=== PATIENT | female | born 1970 | race Caucasian/White ===

== ENCOUNTER → 2016-12-25 | Outpatient (CLI) | payer BC ==
[2016-12-25 18:53] LABS: CONTROL LINE HCG INT CTR LINE PRESENT
[2016-12-25 18:56] LABS: BASO % 0.6 % (0.0-1.0); EOS % 0.7 % (0.0-3.0); LARGE UNSTAINED CELL # 0.1 K/mm3 (0.0-0.4); LARGE UNSTAINED CELL % 1.8 % (0.0-4.0); LYMPH # 1.6 K/mm3 (1.5-4.5); LYMPH % 36.7 % (24.0-44.0); MEAN CORPUSCULAR HEMOGLOBIN 32.4 pg (27.0-33.0); MEAN CORPUSCULAR HGB CONC 33.8 g/dl (32.0-36.5); MEAN CORPUSCULAR VOLUME 95.8 fl (80.0-96.0); MONO # 0.2 K/mm3 (0.0-0.8); MONO % 4.5 % (0.0-5.0); NEUTROPHILS # 2.4 K/mm3 (1.8-7.7); NEUTROPHILS % 55.6 % (36.0-66.0); PLATELET COUNT, AUTOMATED 210 k/mm3 (150-450); RED CELL DISTRIBUTION WIDTH 13.3 % (11.5-14.5); WHITE BLOOD COUNT 4.4 K/mm3 (4.0-10.0)
[2016-12-25 20:29] LABS: ERYTHROCYTE SEDIMENTATION RATE 19 mm/hr (0-20)
--- NOTE | 2016-12-25 22:05 | REP ---
Clinical: Arrhythmia . Comparison: None . Technique: PA and lateral. Findings: The mediastinum and cardiac silhouette are normal. The lung young are clear and without acute consolidation, effusion, or pneumothorax. The skeletal structures are intact and normal. Impression: 1. No acute cardiopulmonary process. Signed by Duke Laureano MD 12/25/2016 09:56 P
== END ==
LOC: M WUC 14:18
PROVIDERS: ATTEND Physician Assistant Medical
DX: L52 Erythema nodosum (principal)

== ENCOUNTER → 2017-02-12 | Outpatient (CLI) | payer BC ==
--- NOTE | 2017-02-12 16:05 | REPMRS ---
Patient History The patient states she had a clinical breast exam in 02/11 Family history of prostate cancer in father at age 50 or over and breast cancer in paternal aunt at age 50 or over. Digital Woman Screen Mammo: February 12, 2017 - Exam #: [id number] Bilateral CC and MLO view(s) were taken. Technologist: Zulema Moon, Technologist Prior study comparison: December 21, 2015, digital woman screen mammo performed at [facility] to [facility]. December 16, 2014, digital woman screen mammo performed at [facility] to [facility]. FINDINGS: There are scattered fibroglandular densities. There has been no change in the appearance of the mammogram from the prior studies. There is a mild amount of residual fibroglandular tissue which is fairly symmetric. There is no interval development of dominant mass, architectural distortion, or clustered microcalcification suggestive of malignancy. ASSESSMENT: BI-RADS/ACR category 1 mammogram. Negative. Recommendation Routine screening mammogram in 1 year (for women over age 40). This mammogram was interpreted with the aid of an FDA-approved computer-aided dectection system. Electronically Signed By: Denzel Long MD 02/12/17 0243
== END ==
LOC: M WHC 14:43
PROVIDERS: ATTEND Nurse Practitioner Women's Health
DX: Z12.31 Encounter for screening mammogram for malignant neoplasm of breast (principal)

== ENCOUNTER → 2017-02-12 | Outpatient (REF) | payer BC | LOC: M SFHCWAGY 15:11 | PROVIDERS: ATTEND Nurse Practitioner Women's Health | DX: Z12.4 Encounter for screening for malignant neoplasm of cervix (principal); Z12.31 Encounter for screening mammogram for malignant neoplasm of breast ==

== ENCOUNTER → 2017-05-01 | Outpatient (REF) | payer BC ==
[2017-05-01 12:24] LABS: BASO % 0.4 % (0.0-1.0); EOS # 0.1 10^3/uL (0.0-0.50); HEMATOCRIT 36.1 % (36.0-47.0); HEMOGLOBIN 12.3 g/dl (12.0-16.0); IMMATURE GRANULOCYTE % 0.4 % (0-0); LYMPH # 2.3 10^3/uL (1.5-4.5); MEAN CORPUSCULAR HEMOGLOBIN 32.8 pg (27.0-33.0); MEAN CORPUSCULAR HGB CONC 34.1 g/dl (32.0-36.5); MEAN CORPUSCULAR VOLUME 96.3 fl (80.0-96.0); MONO # 0.4 10^3/uL (0.0-0.8); NEUTROPHILS # 5.4 10^3/uL (1.8-7.7); NEUTROPHILS % 65.2 % (36.0-66.0); PLATELET COUNT, AUTOMATED 205 10^3/uL (150-450); RED BLOOD COUNT 3.75 10^6/uL (4.00-5.40); RED CELL DISTRIBUTION WIDTH 13.1 % (11.5-14.5); WHITE BLOOD COUNT 8.2 10^3/uL (4.0-10.0)
[2017-05-01 12:45] LABS: ANION GAP 4 MEQ/L (8-16); BLOOD UREA NITROGEN 12 MG/DL (7-18); CALCIUM LEVEL 8.8 MG/DL (8.5-10.1); CARBON DIOXIDE LEVEL 32 MEQ/L (21-32); CHLORIDE LEVEL 107 MEQ/L (98-107); CREATININE FOR GFR 0.65 MG/DL (0.55-1.02); GLOMERULAR FILTRATION RATE > 60.0 (>58); GLUCOSE, FASTING 82 MG/DL (70-105); POTASSIUM SERUM 4.2 MEQ/L (3.5-5.1); SODIUM LEVEL 143 MEQ/L (136-145)
== END ==
LOC: M SFHCPLAZ 10:05
DX: R05 Cough (principal)
CPT/HCPCS: 80048

== ENCOUNTER → 2017-05-01 | Outpatient (CLI) | payer BC | LOC: M SMT 10:47 | DX: R05 Cough (principal) | CPT/HCPCS: 71046 ==

== ENCOUNTER → 2017-10-15 | Outpatient (REF) | payer BC ==
[2017-10-15 16:00] LABS: BASO % 0.5 % (0.0-1.0); EOS % 0.7 % (0.0-3.0); HEMATOCRIT 37.9 % (36.0-47.0); HEMOGLOBIN 12.7 g/dl (12.0-15.5); IMMATURE GRANULOCYTE % 0.3 % (0-3.0); LYMPH # 2.2 10^3/uL (1.5-4.5); LYMPH % 37.6 % (24.0-44.0); MEAN CORPUSCULAR HEMOGLOBIN 32.5 pg (27.0-33.0); MEAN CORPUSCULAR HGB CONC 33.5 g/dl (32.0-36.5); MEAN CORPUSCULAR VOLUME 96.9 fl (80.0-96.0); MONO # 0.5 10^3/uL (0.0-0.8); MONO % 7.8 % (0.0-5.0); NEUTROPHILS # 3.1 10^3/uL (1.8-7.7); NEUTROPHILS % 53.1 % (36.0-66.0); PLATELET COUNT, AUTOMATED 204 10^3/uL (150-450); RED BLOOD COUNT 3.91 10^6/uL (4.00-5.40); RED CELL DISTRIBUTION WIDTH 13.4 % (11.5-14.5); WHITE BLOOD COUNT 5.8 10^3/uL (4.0-10.0)
[2017-10-15 16:20] LABS: C REACTIVE PROTEIN QUANTITATIV 0.38 MG/DL (0.00-0.30)
[2017-10-15 16:33] LABS: ERYTHROCYTE SEDIMENTATION RATE 20 mm/hr (0-20)
[2017-10-18 00:12] LABS: CYCLIC CITRULLINATED PEPTIDE 4 units (0-19)
[2017-10-18 00:12] LABS: ANA (HEP2) Negative (.)
== END ==
LOC: M SFHCPLAZ 12:24
DX: M25.561 Pain in right knee (principal)
CPT/HCPCS: 86140

== ENCOUNTER → 2018-03-03 | Outpatient (CLI) | payer BC | LOC: M WHC 13:22 | DX: Z12.31 Encounter for screening mammogram for malignant neoplasm of breast (principal) | CPT/HCPCS: 77067 ==

== ENCOUNTER → 2019-01-27 | Outpatient (REF) | payer BC ==
[~2019-01-27] MED LIST: KETO10TAB PO; NITR100C2; PYRI1TAB5 PO
== END ==
LOC: M LAB REF 16:27
PROVIDERS: ATTEND Physician Assistant
DX: N39.0 Urinary tract infection, site not specified (principal)

== ENCOUNTER 2019-01-28 20:20 | Emergency (ER) | payer BC ==
[~2019-01-28] VITALS: Ht 177.8 cm; Wt 125.0 kg
[2019-01-28] MEDS ORDERED: NITR100C2 (20:27)
[2019-01-28] MEDS ORDERED: NS 1,000 ML IV ONE (21:00)
[2019-01-28] MEDS ORDERED: KETOROLAC 30 MG/ML VIAL (J1885) IV ONE (21:00)
[2019-01-28 21:16] LABS: BASO % 0.3 % (0.0-1.0); EOS % 0.2 % (0.0-3.0); HEMATOCRIT 37.5 % (36.0-47.0); HEMOGLOBIN 12.5 g/dl (12.0-15.5); LYMPH # 1.4 10^3/uL (1.5-5.0); LYMPH % 15.6 % (24.0-44.0); MEAN CORPUSCULAR HEMOGLOBIN 31.6 pg (27.0-33.0); MEAN CORPUSCULAR HGB CONC 33.3 g/dl (32.0-36.5); MEAN CORPUSCULAR VOLUME 94.9 fl (80.0-96.0); MONO # 0.5 10^3/uL (0.0-0.8); MONO % 5.2 % (0.0-5.0); NEUTROPHILS # 6.8 10^3/uL (1.5-8.5); NEUTROPHILS % 78.4 % (36.0-66.0); PLATELET COUNT, AUTOMATED 213 10^3/uL (150-450); RED BLOOD COUNT 3.95 10^6/uL (4.00-5.40); WHITE BLOOD COUNT 8.7 10^3/uL (4.0-10.0)
[2019-01-28] MEDS ORDERED: ISOVUE-370 76% 100ML VIAL (Q9967) As Ordered ONE (21:20)
[2019-01-28 21:34] LABS: ALBUMIN 3.8 GM/DL (3.2-5.2); BILIRUBIN,DIRECT 0.3 MG/DL (0.0-0.2); TOTAL PROTEIN 7.3 GM/DL (6.4-8.2)
--- NOTE | 2019-01-28 22:30 | REPVR ---
PROCEDURE INFORMATION: Exam: CT Abdomen and pelvis with contrast Exam date and time: 01/28/2019 9:30 PM Clinical history: 48 years old, female; Abdominal pain; Localized; Left upper quadrant (luq); Additional info: Luq pain TECHNIQUE: Imaging protocol: Computed tomography of the abdomen and pelvis with intravenous contrast. Radiation optimization: All CT scans at this facility use at least one of these dose optimization techniques: automated exposure control; mA and/or kV adjustment per patient size (includes targeted exams where dose is matched to clinical indication); or iterative reconstruction. Contrast material: ISOVUE 370; Contrast volume: 100 ml; Contrast route: IV; COMPARISON: No relevant prior studies available. FINDINGS: Liver: There is a diffuse decrease in hepatic parenchymal density, consistent with fatty infiltration. Gallbladder and bile ducts: There has been a cholecystectomy. Pancreas: Normal. No ductal dilation. Spleen: Normal. No splenomegaly. Adrenals: Normal. No mass. Kidneys and ureters: Mild hydroureteronephrosis on the right without evidence of obstructing calculus or mass. Stomach and bowel: Unremarkable. No obstruction. No mucosal thickening. Appendix: No evidence of appendicitis. Intraperitoneal space: Unremarkable. No free air. No significant fluid collection. Vasculature: Unremarkable. No abdominal aortic aneurysm. Lymph nodes: Unremarkable. No enlarged lymph nodes. Bladder: Unremarkable as visualized. Reproductive: Unremarkable as visualized. Bones/joints: The spine demonstrates mild degenerative changes. Mild central spinal stenosis L4-L5. Soft tissues: Unremarkable. IMPRESSION: 1. There is a diffuse decrease in hepatic parenchymal density, consistent with fatty infiltration. 2. There has been a cholecystectomy. 3. Mild hydroureteronephrosis on the right without evidence of obstructing calculus or mass. 4. No acute findings. Electronically signed by: Jin Joel On 01/28/2019 22:30:15 PM
[2019-01-28] MEDS ORDERED: cefTRIAXone SOD 1 GM in D5W MINI-BAG PLUS 50 ML IV ONE (22:45)
[2019-01-28] MEDS ORDERED: PYRI1TAB5 PO (23:21)
[2019-01-28] MEDS ORDERED: KETO10TAB PO (23:22)
[2019-01-28 23:37] VITALS: BP 130/84
== END 2019-01-29 00:01 | disposition home or self-care (01) ==
LOC: M ED 20:20
DX: N39.0 Urinary tract infection, site not specified (principal); Z79.899 Other long term (current) drug therapy; Z88.2 Allergy status to sulfonamides
CPT/HCPCS: 74177; 80047; 80076; 81001; 83605; 83690; 85025; 87086; 96365; 96375; 99284; J0696; J1885; Q9967

== ENCOUNTER → 2019-03-09 | Outpatient (CLI) | payer BC ==
--- NOTE | 2019-03-09 12:31 | REPMRS ---
Patient History The patient states she had a clinical breast exam in 02/2019. Patient is postmenopausal. Family history of prostate cancer at age 50 or over in father, breast cancer at age 50 or over in paternal aunt. No Hormone Replacement Therapy Digital Woman Screen Mammo: March 09, 2019 - Exam #: [id number] Bilateral CC and MLO view(s) were taken. Technologist: Adelita Murry, Technologist Prior study comparison: March 03, 2018, bilateral digital woman screen mammo performed at [facility]. February 12, 2017, digital woman screen mammo performed at [facility]. December 21, 2015, digital woman screen mammo performed at [facility]. FINDINGS: The breast tissue is almost entirely fat. There has been no change in the appearance of the mammogram from the prior studies. There is no interval development of dominant mass, architectural distortion, or grouped microcalcification typical of malignancy. 3-D tomosynthesis shows no additional findings. Assessment: BI-RADS/ACR category 1 mammogram. Negative Mammogram. Recommendation Routine screening mammogram of both breasts in 1 year (for women over age 40). This patient's Lifetime Breast Cancer RIsk is estimated at 11.1 %. This mammogram was interpreted with the aid of an FDA-approved computer-aided dectection system. Electronically Signed By: Ryan Henderson MD 03/09/19 2129
== END ==
LOC: M WHC 09:50
PROVIDERS: ATTEND Nurse Practitioner Women's Health
DX: Z12.31 Encounter for screening mammogram for malignant neoplasm of breast (principal)

== ENCOUNTER → 2019-08-06 | Outpatient (CLI) | payer BC ==
--- NOTE | 2019-08-06 11:14 | REP ---
REASON: Back pain. COMPARISON: None. Minimal partial syndesmophyte formation is seen on the right at L3-4 and L4-5. There is mild posterior disc space narrowing at every level. Vertebral body height and alignment is within normal limits. Minimal anterior lipping is seen L2, L3, and L4. There is no spondylolysis or spondylolisthesis. The pedicles are intact bilaterally. IMPRESSION: Minimal chronic changes as described above. Electronically Signed by Eric Menard DO 08/06/2019 11:36 A
--- NOTE | 2019-08-06 11:15 | REP ---
REASON: Pain. PRIORS: None. FINDINGS: Three views of the sacroiliac joints show them to be non-fused. There is no lysis or sclerosis of either the sacral or iliac side of either SI joints. There is no evidence of whiskering. There is no prominent osteophytosis. IMPRESSION: SI joints within normal limits. Electronically Signed by Eric Menard DO 08/06/2019 11:37 A
--- NOTE | 2019-08-06 11:24 | REP ---
REASON: Bilateral ankle pain, atraumatic. COMPARISON: No priors. FINDINGS: No acute fracture or destructive osseous lesion. The mortise is intact. Note is made of retro and plantar calcaneal heel spurs bilaterally. Note is made of os navicularis on the left. Electronically Signed by Eric Menard DO 08/06/2019 11:37 A
[2019-08-06 13:10] LABS: HEMOGLOBIN A1c 5.3 %
[2019-08-06 13:23] LABS: ALBUMIN 3.5 GM/DL (3.2-5.2); ALT/SGPT 18 U/L (12-78); BILIRUBIN,TOTAL 0.9 MG/DL (0.2-1.0); BLOOD UREA NITROGEN 14 MG/DL (7-18); C REACTIVE PROTEIN QUANTITATIV 0.48 MG/DL (0.00-0.30); CALCIUM LEVEL 8.6 MG/DL (8.5-10.1); CARBON DIOXIDE LEVEL 29 MEQ/L (21-32); CHLORIDE LEVEL 108 MEQ/L (98-107); CHOLESTEROL LEVEL 139 MG/DL (<200); CHOLESTEROL RISK RATIO 2.527 (<5); CREATININE FOR GFR 0.72 MG/DL (0.55-1.30); FREE T4 0.96 NG/DL (0.76-1.46); GLOMERULAR FILTRATION RATE > 60.0 (>58); GLUCOSE, FASTING 80 MG/DL (70-100); HDL CHOLESTEROL 55 MG/DL (>40); LDL CHOLESTEROL 74 MG/DL (<100); NON-HDL-C 84 MG/DL; POTASSIUM SERUM 4.3 MEQ/L (3.5-5.1); SODIUM LEVEL 140 MEQ/L (136-145); TOTAL PROTEIN 6.9 GM/DL (6.4-8.2); TRIGLYCERIDES LEVEL 51 MG/DL (<150)
[2019-08-06 13:24] LABS: TOTAL 25(OH) VITAMIN D 24.3 NG/ML (30.0-100.0)
[2019-08-06 13:25] LABS: PTH INTACT 100.9 PG/ML (18.5-88.0)
== END ==
LOC: M WUC 10:10
PROVIDERS: ATTEND Family Medicine
DX: E66.09 Other obesity due to excess calories (principal); M77.31 Calcaneal spur, right foot; M77.32 Calcaneal spur, left foot; M25.78 Osteophyte, vertebrae

== ENCOUNTER → 2020-06-01 | Outpatient (REF) | payer BC | LOC: M SFHCWAGY 16:49 | PROVIDERS: ATTEND Nurse Practitioner Women's Health | DX: Z12.4 Encounter for screening for malignant neoplasm of cervix (principal); Z01.419 Encounter for gynecological examination (general) (routine) without abnormal findings ==

== ENCOUNTER → 2020-06-29 | Outpatient (CLI) | payer BC ==
--- NOTE | 2020-06-29 14:34 | REPMRS ---
Patient History The patient states she had a clinical breast exam in May 2020. Family history of prostate cancer at age 50 or over in father, breast cancer at age 50 or over in paternal aunt. No Hormone Replacement Therapy 3D TOMOSYNTHESIS WAS PERFORMED. [facility]%. Volpara breast density a. Digital Woman Screen Mammo: June 29, 2020 - Exam #: [id number] Bilateral CC and MLO view(s) were taken. Technologist: Cristy Morris RT Prior study comparison: March 09, 2019, bilateral digital woman screen mammo performed at [facility]. March 03, 2018, bilateral digital woman screen mammo performed at [facility]. FINDINGS: There are scattered fibroglandular densities. There has been no change in the appearance of the mammogram from the prior studies. There is a mild amount of residual fibroglandular tissue which is fairly symmetric. There is no interval development of dominant mass, architectural distortion, or clustered microcalcification suggestive of malignancy. Assessment: BI-RADS/ACR category 1 mammogram. Negative Mammogram. Recommendation Routine screening mammogram in 1 year (for women over age 40). This mammogram was interpreted with the aid of an FDA-approved computer-aided dectection system. Electronically Signed By: Denzel Long MD 06/29/20 4081
== END ==
LOC: M WHC 13:34
PROVIDERS: ATTEND Nurse Practitioner Women's Health
DX: Z12.31 Encounter for screening mammogram for malignant neoplasm of breast (principal)

== ENCOUNTER → 2020-09-29 | Outpatient (REF) | payer BC ==
[2020-09-29 17:08] LABS: BASO % 0.5 % (0.0-1.0); EOS # 0.1 10^3/uL (0.0-0.5); EOS % 0.9 % (0.0-3.0); HEMATOCRIT 38.8 % (36.0-47.0); HEMOGLOBIN 12.8 g/dl (12.0-15.5); LYMPH # 2.2 10^3/uL (1.5-5.0); MEAN CORPUSCULAR HEMOGLOBIN 32.2 pg (27.0-33.0); MEAN CORPUSCULAR VOLUME 97.5 fl (80.0-96.0); MONO # 0.4 10^3/uL (0.0-0.8); MONO % 5.4 % (2.0-8.0); NEUTROPHILS # 3.8 10^3/uL (1.5-8.5); NEUTROPHILS % 58.7 % (36.0-66.0); PLATELET COUNT, AUTOMATED 219 10^3/uL (150-450); RED BLOOD COUNT 3.98 10^6/uL (4.00-5.40); WHITE BLOOD COUNT 6.5 10^3/uL (4.0-10.0)
[2020-09-29 17:41] LABS: ALBUMIN 3.9 GM/DL (3.2-5.2); ALT/SGPT 21 U/L (12-78); BLOOD UREA NITROGEN 11 MG/DL (7-18); C REACTIVE PROTEIN QUANTITATIV 0.92 MG/DL (0.00-0.30); CALCIUM LEVEL 9.1 MG/DL (8.5-10.1); CARBON DIOXIDE LEVEL 27 MEQ/L (21-32); CHLORIDE LEVEL 107 MEQ/L (98-107); CREATININE FOR GFR 0.65 MG/DL (0.55-1.30); CREATININE, URINE 40.4 MG/DL; GLOMERULAR FILTRATION RATE > 60.0 (>51); GLUCOSE, FASTING 86 MG/DL (70-100); MALB URINE SIEMENS < 5.0 MG/L; MAU/CREAT RATIO 12.3 MCG/MG (0.0-30.0); POTASSIUM SERUM 4.1 MEQ/L (3.5-5.1); PTH INTACT 88.5 PG/ML (18.5-88.0); SODIUM LEVEL 139 MEQ/L (136-145); TOTAL 25(OH) VITAMIN D 38.3 NG/ML (30.0-100.0); TOTAL PROTEIN 7.3 GM/DL (6.4-8.2)
[2020-09-29 17:51] LABS: ERYTHROCYTE SEDIMENTATION RATE 22 mm/hr (0-30)
[2020-09-29 18:22] LABS: VITAMIN B12 LEVEL 198 PG/ML (247-911)
[2020-10-02 13:22] LABS: ALBUMIN % 57.4 % (55.8-66.1); ALPHA-1-GLOBULIN % 5.1 % (2.9-4.9); ALPHA-2-GLOBULINS % 8.9 % (7.1-11.8)
[2020-10-02 13:23] LABS: ALBUMIN 4.19 GM/DL (3.29-5.55); ALPHA-1-GLOBULINS 0.37 GM/DL (0.17-0.41); ALPHA-2-GLOBULINS 0.65 GM/DL (0.42-0.99); BETA-1-GLOBULINS 0.43 GM/DL (0.28-0.60); BETA-1-GLOBULINS % 5.9 % (4.7-7.2); BETA-2-GLOBULINS % 6.8 % (3.2-6.5); GAMMA GLOBULIN % 15.9 % (11.1-18.8); GAMMA GLOBULINS 1.16 GM/DL (0.65-1.58)
[2020-10-02 18:22] LABS: ANA (HEP2) Negative (.); INSULIN LEVEL 6.8 uIU/mL (2.6-24.9)
== END ==
LOC: M SFHCPLAZ 13:53
PROVIDERS: ATTEND Family Medicine
DX: E55.9 Vitamin D deficiency, unspecified (principal); M19.079 Primary osteoarthritis, unspecified ankle and foot; D75.89 Other specified diseases of blood and blood-forming organs; R73.01 Impaired fasting glucose

== ENCOUNTER → 2020-09-29 | Outpatient (CLI) | payer BC ==
--- NOTE | 2020-09-29 14:40 | DEXAMM ---
INDICATION: E28.39 ESTROGEN DEFICIENCY. COMPARISON: None. TECHNIQUE: Bone density was measured using dual-energy x-ray absorptiometry (DEXA). FINDINGS: AP SPINE L1-L4 BMD 1.316 g/cm2 Young Adult T-Score 1.0 Age Matched Z-Score 1.4. LT FEMUR, TOTAL BMD 1.111 g/cm2 Young Adult T-Score 0.8 Age Matched Z-Score 1.3. LT NECK BMD 1.016 g/cm2 Young Adult T-Score -0.2 Age Matched Z-Score 0.6. RT FEMUR, TOTAL BMD 1.123 g/cm2 Young Adult T-Score 0.9 Age Matched Z-Score 1.4. RT NECK BMD 0.973 g/cm2 Young Adult T-Score -0.5 Age Matched Z-Score 0.3. IMPRESSION: There is normal bone density of the spine. There is normal bone density of the left hip. There is normal bone density of the right hip. FOLLOW-UP: Recommendation for the next bone density exam: 5 years. <Electronically signed by Denzel Long > 09/29/20 [id number]
== END ==
LOC: M WHC 13:25
PROVIDERS: ATTEND Family Medicine
DX: E28.39 Other primary ovarian failure (principal)

== ENCOUNTER → 2021-05-31 | Outpatient (CLI) | payer BC ==
[2021-05-31 10:32] LABS: BASO % 0.4 % (0.0-1.0); EOS % 0.6 % (0.0-3.0); HEMATOCRIT 39.2 % (36.0-47.0); HEMOGLOBIN 13.2 g/dl (12.0-15.5); LYMPH # 1.3 10^3/uL (1.5-5.0); LYMPH % 28.1 % (24.0-44.0); MEAN CORPUSCULAR HEMOGLOBIN 32.1 pg (27.0-33.0); MEAN CORPUSCULAR HGB CONC 33.7 g/dl (32.0-36.5); MEAN CORPUSCULAR VOLUME 95.4 fl (80.0-96.0); MONO # 0.4 10^3/uL (0.0-0.8); MONO % 8.9 % (2.0-8.0); NEUTROPHILS # 2.9 10^3/uL (1.5-8.5); NEUTROPHILS % 61.8 % (36.0-66.0); PLATELET COUNT, AUTOMATED 180 10^3/uL (150-450); RED BLOOD COUNT 4.11 10^6/uL (4.00-5.40); WHITE BLOOD COUNT 4.6 10^3/uL (4.0-10.0)
[2021-05-31 10:37] LABS: HEMATOCRIT 39.2 % (36.0-47.0)
[2021-05-31 11:07] LABS: ALBUMIN 3.8 GM/DL (3.2-5.2); BLOOD UREA NITROGEN 11 MG/DL (7-18); CALCIUM LEVEL 8.9 MG/DL (8.5-10.1); CARBON DIOXIDE LEVEL 28 MEQ/L (21-32); CHLORIDE LEVEL 108 MEQ/L (98-107); CREATININE FOR GFR 0.78 MG/DL (0.55-1.30); FREE T4 1.08 NG/DL (0.76-1.46); GLOMERULAR FILTRATION RATE > 60.0 (>51); GLUCOSE, FASTING 95 MG/DL (70-100); PHOSPHORUS LEVEL 3.2 MG/DL (2.5-4.9); POTASSIUM SERUM 4.2 MEQ/L (3.5-5.1); SODIUM LEVEL 142 MEQ/L (136-145); TOTAL PROTEIN 7.2 GM/DL (6.4-8.2)
[2021-06-01 11:40] LABS: ALBUMIN 3.97 GM/DL (3.29-5.55); ALBUMIN % 55.2 % (55.8-66.1); ALPHA-1-GLOBULIN % 5.5 % (2.9-4.9); ALPHA-2-GLOBULINS 0.61 GM/DL (0.42-0.99); ALPHA-2-GLOBULINS % 8.5 % (7.1-11.8); BETA-1-GLOBULINS 0.49 GM/DL (0.28-0.60); BETA-1-GLOBULINS % 6.8 % (4.7-7.2); BETA-2-GLOBULINS 0.53 GM/DL (0.19-0.55); BETA-2-GLOBULINS % 7.4 % (3.2-6.5); GAMMA GLOBULIN % 16.6 % (11.1-18.8)
[2021-06-01 13:15] LABS: PTH INTACT 123.3 PG/ML (18.5-88.0)
[2021-06-01 13:16] LABS: VITAMIN B12 LEVEL 254 PG/ML (247-911)
== END ==
LOC: M PLALAB 09:31
PROVIDERS: ATTEND Family Medicine
DX: D75.89 Other specified diseases of blood and blood-forming organs (principal); E53.8 Deficiency of other specified B group vitamins; E55.9 Vitamin D deficiency, unspecified; R73.01 Impaired fasting glucose

== ENCOUNTER → 2021-07-17 | Outpatient (CLI) | payer BC | LOC: M WHC 07:07 | PROVIDERS: ATTEND Family Medicine | DX: Z12.31 Encounter for screening mammogram for malignant neoplasm of breast (principal); Z80.3 Family history of malignant neoplasm of breast; Z80.42 Family history of malignant neoplasm of prostate ==

== ENCOUNTER 2021-08-16 18:02 | Emergency (ER) | payer BC ==
[~2021-08-16] VITALS: Ht 177.8 cm; Wt 136.4 kg
[2021-08-16] MEDS ORDERED: CELE1CAP9 (18:21)
[2021-08-16 20:41] LABS: BASO % 0.4 % (0.0-1.0); EOS # 0.1 10^3/uL (0.0-0.5); EOS % 1.3 % (0.0-3.0); HEMATOCRIT 38.2 % (36.0-47.0); HEMOGLOBIN 12.9 g/dl (12.0-15.5); LYMPH # 3.1 10^3/uL (1.5-5.0); LYMPH % 39.7 % (24.0-44.0); MEAN CORPUSCULAR HEMOGLOBIN 32.5 pg (27.0-33.0); MEAN CORPUSCULAR HGB CONC 33.8 g/dl (32.0-36.5); MEAN CORPUSCULAR VOLUME 96.2 fl (80.0-96.0); MONO # 0.6 10^3/uL (0.0-0.8); MONO % 7.5 % (2.0-8.0); NEUTROPHILS # 3.9 10^3/uL (1.5-8.5); NEUTROPHILS % 50.7 % (36.0-66.0); PLATELET COUNT, AUTOMATED 227 10^3/uL (150-450); RED BLOOD COUNT 3.97 10^6/uL (4.00-5.40); WHITE BLOOD COUNT 7.7 10^3/uL (4.0-10.0)
[2021-08-16 20:51] LABS: INR 0.94
[2021-08-16 20:52] LABS: PARTIAL THROMBOPLASTIN TIME 31.5 SECONDS (25.9-37.0)
[2021-08-16 20:57] LABS: BLOOD UREA NITROGEN 19 MG/DL (7-18); CALCIUM LEVEL 9.3 MG/DL (8.5-10.1); CARBON DIOXIDE LEVEL 29 MEQ/L (21-32); CHLORIDE LEVEL 106 MEQ/L (98-107); GLOMERULAR FILTRATION RATE > 60.0 (>51); GLUCOSE, FASTING 90 MG/DL (70-100); POTASSIUM SERUM 4.4 MEQ/L (3.5-5.1); SODIUM LEVEL 141 MEQ/L (136-145)
[2021-08-16 21:02] LABS: CK-MB VALUE MASS 1.5 NG/ML (<3.6); CPK CREATINE PHOSPHOKINASE 129 U/L (26-192); MB/CK RELATIVE INDEX 1.16 (< OR =4)
[2021-08-16 22:16] VITALS: BP 137/66
== END 2021-08-16 23:30 | disposition home or self-care (01) ==
LOC: M ED 18:02
DX: M54.12 Radiculopathy, cervical region (principal); E66.9 Obesity, unspecified; F31.9 Bipolar disorder, unspecified; Z88.2 Allergy status to sulfonamides

== ENCOUNTER → 2021-08-27 | Outpatient (REF) | payer BC ==
[~2021-08-27] MED LIST changes: +CELE1CAP9
== END ==
LOC: M SFHCWAGY 13:15
PROVIDERS: ATTEND Specialist
DX: Z12.4 Encounter for screening for malignant neoplasm of cervix (principal)
CPT/HCPCS: 87624; G0123

== ENCOUNTER → 2023-04-14 | Outpatient (CLI) | payer BC ==
[~2023-04-14] MED LIST changes: +CELE0.09; -CELE1CAP9
[2023-04-14 15:42] LABS: BASO % 0.6 % (0.0-1.0); EOS % 0.4 % (0.0-3.0); HEMOGLOBIN 13.5 g/dl (12.0-15.5); LYMPH # 1.8 10^3/uL (1.5-5.0); LYMPH % 35.3 % (24.0-44.0); MEAN CORPUSCULAR HEMOGLOBIN 31.8 pg (27.0-33.0); MEAN CORPUSCULAR HGB CONC 32.9 g/dl (32.0-36.5); MEAN CORPUSCULAR VOLUME 96.5 fl (80.0-96.0); MONO # 0.3 10^3/uL (0.0-0.8); MONO % 6.2 % (2.0-8.0); NEUTROPHILS # 2.9 10^3/uL (1.5-8.5); NEUTROPHILS % 57.3 % (36.0-66.0); PLATELET COUNT, AUTOMATED 196 10^3/uL (150-450); RED BLOOD COUNT 4.25 10^6/uL (4.00-5.40); WHITE BLOOD COUNT 5.1 10^3/uL (4.0-10.0)
[2023-04-14 15:48] LABS: ALBUMIN 4.1 G/DL (3.2-5.2); BLOOD UREA NITROGEN 12 MG/DL (9-23); CALCIUM LEVEL 9.5 MG/DL (8.5-10.1); CARBON DIOXIDE LEVEL 27 MMOL/L (20-31); CHLORIDE LEVEL 106 MMOL/L (98-107); GLOMERULAR FILTRATION RATE > 60.0 (>51); GLUCOSE, FASTING 97 MG/DL (60-100); PHOSPHORUS LEVEL 3.6 MG/DL (2.5-4.9); POTASSIUM SERUM 4.1 MMOL/L (3.5-5.1); SODIUM LEVEL 141 MMOL/L (136-145)
[2023-04-14 15:50] LABS: IMMUNOGLOBULIN A 219.8 MG/DL (40-350); IMMUNOGLOBULIN G 1552 MG/DL (650-1600); IMMUNOGLOBULIN M 84.5 MG/DL (50-300); PTH INTACT 96.8 PG/ML (18.5-88.0); VITAMIN B12 LEVEL 388 PG/ML (211-911)
[2023-04-14 15:51] LABS: TOTAL 25(OH) VITAMIN D 27.6 NG/ML (20.0-100.0)
[2023-04-14 15:55] LABS: HEMOGLOBIN A1c 4.9 % (4.0-6.0)
== END ==
LOC: M PLALAB 11:32
PROVIDERS: ATTEND Family Medicine
DX: D75.89 Other specified diseases of blood and blood-forming organs (principal); K76.0 Fatty (change of) liver, not elsewhere classified; R73.01 Impaired fasting glucose; E55.9 Vitamin D deficiency, unspecified; E53.8 Deficiency of other specified B group vitamins

== ENCOUNTER → 2023-04-30 | Outpatient (CLI) | payer BC | LOC: M RAD 06:57 | PROVIDERS: ATTEND Family Medicine | DX: K74.00 Hepatic fibrosis, unspecified (principal); Z90.49 Acquired absence of other specified parts of digestive tract; K76.0 Fatty (change of) liver, not elsewhere classified; I77.819 Aortic ectasia, unspecified site ==

== ENCOUNTER → 2023-07-07 | Outpatient (CLI) | payer BC | LOC: M WHC 14:10 | PROVIDERS: ATTEND Specialist | DX: Z12.31 Encounter for screening mammogram for malignant neoplasm of breast (principal) ==

== ENCOUNTER → 2023-07-07 | Outpatient (REF) | payer BC | LOC: M SFHCWAGY 08:10 | PROVIDERS: ATTEND Specialist | DX: Z01.419 Encounter for gynecological examination (general) (routine) without abnormal findings (principal) | CPT/HCPCS: 87624; G0123 ==

== ENCOUNTER → 2023-07-07 | Outpatient (CLI) | payer BC | LOC: M WHC 13:37 | PROVIDERS: ATTEND Family Medicine | DX: M85.88 Other specified disorders of bone density and structure, other site (principal) ==

== ENCOUNTER 2024-01-03 13:26 | Emergency (ER) | payer OTHER, BC ==
[2024-01-03] MEDS ORDERED: [UNRECOGNIZED DRUG - CODE] PO (13:45)
[2024-01-03 15:30] VITALS: BP 125/80; TEMP 97.9; O2SAT 100
== END 2024-01-03 15:30 | disposition home or self-care (01) ==
LOC: M ED 13:26 → EDSEX 13:26 → EDBD 13:26 → M ED 15:30
DX: S16.1XXA Strain of muscle, fascia and tendon at neck level, initial encounter (principal); V49.40XA Driver injured in collision with unspecified motor vehicles in traffic accident, initial encounter; Y92.410 Unspecified street and highway as the place of occurrence of the external cause; Y93.89 Activity, other specified; Y99.9 Unspecified external cause status; Z88.2 Allergy status to sulfonamides; Z79.899 Other long term (current) drug therapy

== ENCOUNTER → 2024-01-14 | Outpatient (CLI) | payer BC ==
[~2024-01-14] MED LIST changes: +[UNRECOGNIZED DRUG - CODE] PO
[2024-01-14 15:04] LABS: HEMATOCRIT 37.3 % (36.0-47.0); HEMOGLOBIN 12.3 g/dl (12.0-15.5); MEAN CORPUSCULAR HEMOGLOBIN 32.1 pg (27.0-33.0); MEAN CORPUSCULAR VOLUME 97.4 fl (80.0-96.0); PLATELET COUNT, AUTOMATED 211 10^3/uL (150-450); RED BLOOD COUNT 3.83 10^6/uL (4.00-5.40); WHITE BLOOD COUNT 6.3 10^3/uL (4.0-10.0)
[2024-01-14 15:37] LABS: ALBUMIN 3.8 G/DL (3.2-5.2); ALKALINE PHOSPHATASE 80 U/L (46-116); ALT/SGPT 17 U/L (7.0-40); AST/SGOT 10 U/L (<34); BILIRUBIN,TOTAL 0.8 MG/DL (0.3-1.2); BLOOD UREA NITROGEN 14 MG/DL (9-23); CALCIUM LEVEL 9.2 MG/DL (8.5-10.1); CARBON DIOXIDE LEVEL 29 MMOL/L (20-31); CHLORIDE LEVEL 110 MMOL/L (98-107); CREATININE FOR GFR 0.78 MG/DL (0.55-1.30); GLOMERULAR FILTRATION RATE > 60.0 (>51); GLUCOSE, FASTING 90 MG/DL (60-100); POTASSIUM SERUM 4.5 MMOL/L (3.5-5.1); SODIUM LEVEL 142 MMOL/L (136-145)
== END ==
LOC: M PLALAB 12:08
DX: M62.838 Other muscle spasm (principal); M47.812 Spondylosis without myelopathy or radiculopathy, cervical region

== ENCOUNTER → 2024-01-14 | Outpatient (REF) | payer BC | LOC: M SFHCPLAZ 11:52 | DX: Z53.9 Procedure and treatment not carried out, unspecified reason (principal); V89.2XXD Person injured in unspecified motor-vehicle accident, traffic, subsequent encounter ==

== ENCOUNTER → 2024-01-19 | Outpatient (CLI) | payer BC | LOC: M RAD 15:44 | DX: T14.90XA Injury, unspecified, initial encounter (principal); M54.9 Dorsalgia, unspecified; V89.2XXD Person injured in unspecified motor-vehicle accident, traffic, subsequent encounter; M47.816 Spondylosis without myelopathy or radiculopathy, lumbar region; M25.78 Osteophyte, vertebrae; M47.814 Spondylosis without myelopathy or radiculopathy, thoracic region; Y92.410 Unspecified street and highway as the place of occurrence of the external cause; Y93.9 Activity, unspecified; Y99.8 Other external cause status ==

== ENCOUNTER → 2024-05-28 | Outpatient (CLI) | payer BC | LOC: M PLAIMG 09:58 | DX: M94.0 Chondrocostal junction syndrome [Tietze] (principal) ==

== ENCOUNTER → 2024-11-15 | Outpatient (REF) | payer BC, OTHER ==
[2024-11-15 17:09] LABS: INR 1.01
[2024-11-15 17:32] LABS: ALT/SGPT 15 U/L (7.0-40); AST/SGOT 16 U/L (<34); CALCIUM LEVEL 9.0 MG/DL (8.5-10.1); CARBON DIOXIDE LEVEL 28 MMOL/L (20-31); CHLORIDE LEVEL 106 MMOL/L (98-107); CHOLESTEROL LEVEL 142 MG/DL (<200); CHOLESTEROL RISK RATIO 2.95 (<5); CREATININE FOR GFR 0.80 MG/DL (0.55-1.30); GLOMERULAR FILTRATION RATE 87.5 (>51); LDL CHOLESTEROL 78.4 MG/DL (<100); MAGNESIUM LEVEL 2.1 MG/DL (1.8-2.4); NON-HDL-C 94.0 MG/DL; POTASSIUM SERUM 4.1 MMOL/L (3.5-5.1); PTH INTACT 77.4 PG/ML (18.5-88.0); SODIUM LEVEL 143 MMOL/L (136-145); TRIGLYCERIDES LEVEL 78 MG/DL (<150)
[2024-11-15 17:34] LABS: TOTAL 25(OH) VITAMIN D 34.8 NG/ML (20.0-100.0); VITAMIN B12 LEVEL 298 PG/ML (211-911)
[2024-11-18 02:29] LABS: PROTEIN, TOTAL SO 7.1 g/dL (6.1-8.1)
== END ==
LOC: M SFHCPLAZ 10:19
PROVIDERS: ATTEND Family Medicine
DX: K74.00 Hepatic fibrosis, unspecified (principal); R73.01 Impaired fasting glucose; E53.8 Deficiency of other specified B group vitamins; D75.89 Other specified diseases of blood and blood-forming organs; E55.9 Vitamin D deficiency, unspecified; R03.0 Elevated blood-pressure reading, without diagnosis of hypertension